=== PATIENT | female | born 1985 | race Caucasian/White ===

== ENCOUNTER 2019-02-20 17:53 | Inpatient (IN) | payer BC ==
[~2019-02-20] VITALS: Ht 172.7 cm; Wt 54.5 kg
[2019-02-20] VITALS (7 sets, daily range): BP systolic 93–102; BP diastolic 55–71
--- NOTE | 2019-02-20 18:23 | NUR ---
PIV INITIATED; 18G RAC. SALINE BOLUS HUNG. LABS DRAWN. PT'S SPOUSE & MO IN ROOM. PT STATES SHE STARTED SPOTTING ON 02/16/19, SAW OB ON FRIDAY, WAS AWARE OF MISCARRIAGE STATE & WAS ADVISED TO GO TO ED FOR HEAVY BLEEDING. 1600 TODAY, HEAVY BLEEDING W/ LARGE CLOTS. C/O CONTRACTION-LIKE PAIN. NO PAIN MEDS TAKEN. LMP: 12/07/2018. LAST ORAL INTAKE: 1545 TODAY.
[2019-02-20] MEDS ORDERED: PRENATAL VITAMIN (18:29)
[2019-02-20] MEDS ORDERED: LORA10TA75 PO (18:29)
[2019-02-20] MEDS ORDERED: SODIUM CHLORIDE 0.9% 1,000ML IVBOLUS ONE (18:30)
[2019-02-20 18:31] LABS: BASOPHILS # (AUTO) 0.08 x10^3/uL (0-0.1); BASOPHILS % (AUTO) 1 % (0-1); EOSINOPHILS # (AUTO) 0.09 x10^3/uL (0-0.4); EOSINOPHILS % (AUTO) 1 % (1-7); LYMPHOCYTES # (AUTO) 2.21 x10^3/uL (1-3.4); LYMPHOCYTES % (AUTO) 29 % (22-44); MD NO; MEAN CORPUSCULAR HEMOGLOBIN 30.6 pg (27.0-34.8); MEAN CORPUSCULAR HGB CONC 33.4 g/dL (32.4-35.8); MEAN CORPUSCULAR VOLUME 91.7 fL (80-100); MEAN PLATELET VOLUME 8.6 fL (7.4-10.4); MONOCYTES # (AUTO) 0.62 x10^3/uL (0.2-0.8); MONOCYTES % (AUTO) 8 % (2-9); NEUTROPHILS # (AUTO) 4.78 x10^3/uL (1.8-6.8); NEUTROPHILS % (AUTO) 62 % (42-75); PLATELET COUNT 227 x10^3/uL (130-400); RED BLOOD COUNT 4.32 x10^6/uL (3.82-5.3); RED CELL DISTRIBUTION WIDTH 13.1 % (9.6-15.2)
[2019-02-20 18:42] LABS: ALBUMIN 4.1 g/dL (3.4-5.0); ANION GAP 8 mmol/L (5-15); CALCIUM 8.8 mg/dL (8.5-10.1); CHLORIDE 111 mmol/L (98-107); CREATININE 0.78 mg/dL (0.55-1.02)
--- NOTE | 2019-02-20 18:52 | NUR ---
RADHA, FROM BLOOD BANK, CALLED; REPORTS PT IS RH NEG. SHE WILL SET UP RHOGAM. HOLDING ON PACKED CELLS UNTIL CONFIRMED BY DR FORMAN.
--- NOTE | 2019-02-20 19:04 | NUR ---
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 PT REPORTS SHE HAD RHOGAM INJECTION ON FRIDAY; ERP WILL BE NOTIFIED.
--- NOTE | 2019-02-20 19:33 | NUR ---
PT C/O FEELING FAINT, SKIN PALE. BED PLACED IN [place] POSITION. 2ND LITER NS HUNG INFUSING W-O. SPOUSE & MOM BS. ERP WILL BE UPDATED.
--- NOTE | 2019-02-20 19:41 | NUR ---
BLOOD TRANSFUSION CONSENT SIGNED BY PT. PT'S MOM AT BS. PT LAUGHING W/ MOM.
--- NOTE | 2019-02-20 19:50 | NUR ---
ORDER SENT TO BLOOD BANK
--- NOTE | 2019-02-20 19:51 | NUR ---
VAG BLEED HAS DECREASED IN INTENSITY AND AMOUNT. PT REFUSED PAIN MED, AT THIS TIME.
[2019-02-20] MEDS ORDERED: METHYLERGONOVINE 0.2 MG/ML IM ONE (20:00)
[2019-02-20] MEDS ORDERED: MISOPROSTOL 200 MCG TABLET PR ONE (20:00)
--- NOTE | 2019-02-20 20:00 | NUR ---
PHARMACY CALLED FOR METHERGINE AND CYTOTEC
--- NOTE | 2019-02-20 20:09 | NUR ---
BS U/S COMPLETED. PT RETURNED TO SUPINE POSTION.
--- NOTE | 2019-02-20 20:20 | NUR ---
BLOOD TRANSFUSION STARTED; BLOOD PRODUCT VERIFIED Lidya/ KIM Pfeiffer RN. Addendum: 02/20/19 at 2023 by JENA INFUSING VIA PUMP
--- NOTE | 2019-02-20 20:47 | NUR ---
RADHA, BLOOD BANK, CALLED TO CONFIRM "NO RHOGAM" - CONFIRMED. PER ERP, PT TO HAVE D&C MONALISA AND DR DÍAZ WILL BE IN TO SEE PT.
--- NOTE | 2019-02-20 20:51 | NUR ---
METHERGINE & CYTOTEC NOT RECEIVED FROM PHARMACY. CALLED PHARMACY RE: STATUS. MEDS WILL BE SENT TO ED, MARQUISE GARBER
--- NOTE | 2019-02-20 20:55 | NUR ---
CYTOTEC AND METHERGINE RECEIVED FROM PHARMACY. DR DÍAZ BS TO DISCUSS POC. VO DR DÍAZ: SEND CYTOTEC TO OR W/ PT AND SHE WILL ADMINISTER MEDICATION. BLOOD TRANSFUSION CONTINUING, PT RESTING EASILY, MONITORING CONTINUING, SPOUSE AT BS.
--- NOTE | 2019-02-20 21:09 | NUR ---
PT REPORT TO KATRINA, FROM SURGERY.
--- NOTE | 2019-02-20 21:24 | NUR ---
DR DÍAZ AND OR LABEL DESIGNER BS. 1ST BLOOD UNIT INFUSED. 2ND BLOOD UNIT WILL NOT BE HUNG IN ED. PT A&OX4, RESP EVEN & UNLABORED, SPEECH CLEAR, IV SITE PATENT, SALINE INFUSING (LITER #3)
--- NOTE | 2019-02-20 21:29 | NUR ---
TO OR MARQUISE MUNROE ACCOMPANIED BY DR DÍAZ, OR JUANA AND PT'S SPOUSE.
[2019-02-20] MEDS ORDERED: FENTANYL PF 250 MCG/5ML ONE (21:33)
[2019-02-20] MEDS ORDERED: ONDANSETRON 2MG/ML, 2ML ONE (21:44)
[2019-02-20] MEDS ORDERED: DEXAMETHASONE 4 MG/ML, 1ML ONE (21:44)
[2019-02-20] MEDS ORDERED: ROCURONIUM 10MG/ML,5ML ONE (21:45)
[2019-02-20] MEDS ORDERED: PROPOFOL 10 MG/ML, 20ML ONE (21:45)
[2019-02-20] MEDS ORDERED: SUCCINYLCHOLINE 20 MG/ML, 10ML ONE (21:45)
[2019-02-20] MEDS ORDERED: CEFAZOLIN 1,000 MG ONE (21:50)
[2019-02-20] MEDS ORDERED: ONDANSETRON 2MG/ML, 2ML IV PRN (22:00)
[2019-02-20] MEDS ORDERED: FENTANYL PF 100 MCG/2ML IV PRN (22:00)
[2019-02-20] MEDS ORDERED: OXYcodone 5 MG/5 ML ORAL.SOL UDC PO PRN (22:00)
[2019-02-20] MEDS ORDERED: HYDROmorphone 2 MG/ML, 1ML IVPush PRN (22:00)
[2019-02-20] MEDS ORDERED: PROMETHAZINE 25 MG/ML, 1ML IV PRN (22:00)
[2019-02-20] MEDS ORDERED: MEPERIDINE/PF 25MG/ML,1ML IVPush PRN (22:00)
[2019-02-20] MEDS ORDERED: SILVER NITRATE STICK TP ONE ×2 (22:06→22:10)
[2019-02-20] MEDS ORDERED: MISOPROSTOL 200 MCG TABLET VG ONE (22:10)
[2019-02-20] MEDS ORDERED: IBUP200T49 PO (23:13)
[2019-02-20] MEDS ORDERED: FERR324T18 PO (23:14)
== END 2019-02-21 00:50 | disposition home or self-care (01) | DRG 770 ==
LOC: ED 20:11 → EDIP 21:33 → 4NE 22:59
PROVIDERS: ADMIT Obstetrics & Gynecology; ATTEND Obstetrics & Gynecology
PROC: 30233N1 Transfusion of Nonautologous Red Blood Cells into Peripheral Vein, Percutaneous Approach (ICD-10-PCS; 2019-02-20)
PROC: 10D17ZZ Extraction of Products of Conception, Retained, Via Natural or Artificial Opening (ICD-10-PCS; principal; 2019-02-20 21:30)
DX: O03.4 Incomplete spontaneous abortion without complication (principal); Z3A.01 Less than 8 weeks gestation of pregnancy; I10 Essential (primary) hypertension; E11.9 Type 2 diabetes mellitus without complications
CPT/HCPCS: 36415; 76801; 80048; 82040; 84702; 85025; 86850; 86870; 86900; 86922; 86923; 88305; 93005; J0690; J1100; J2405; J2704; J3010; G0378; J0330; J2210; J7030; P9016